=== PATIENT | female | born 1985 | race Hispanic/Latino ===

== ENCOUNTER → 2019-04-06 | Outpatient (CLI) | payer BC ==
--- NOTE | 2019-04-06 08:36 | Diagnostic Imaging Report ---
EXAMINATION: Transabdominal pelvic ultrasound. CLINICAL INDICATION: Excessive menstrual bleeding COMPARISON: None available DISCUSSION: Transverse and sagittal transvaginal images were obtained of the pelvis with supplemental transabdominal images. The uterus is neutral in position and normal in size measuring 12.5 x 4.9 x 6.1 cm. The endometrial stripe is homogeneous, normal in thickness and measures 0.6 centimeters. The ovaries are normal in size and echogenicity. The right ovary measures 3.4 x 2.4 x 2.7 centimeters and contains several small follicles. The left ovary measures 2.6 x 2.2 x 2.8 centimeters and contains several small follicles. No free fluid or pelvic masses are seen. IMPRESSION: Unremarkable transabdominal pelvic ultrasound. Signed by: Dr. Tez Schulte M.D. on 04/06/2019 8:32 AM
== END ==
LOC: US 07:35
PROVIDERS: ATTEND Internal Medicine
DX: N92.4 Excessive bleeding in the premenopausal period (principal)
CPT/HCPCS: 76856

== ENCOUNTER 2021-12-13 10:48 | Emergency (ER) | payer BC, OTHER ==
[~2021-12-13] VITALS: Ht 162.6 cm; Wt 90.7 kg
[2021-12-13] MEDS ORDERED: KETOROLAC TROMETHAMINE 60 MG/2 ML VIAL IM NR (11:30)
[2021-12-13] MEDS ORDERED: BACITRACIN ZINC 0.9GM TP ONE (12:45)
[2021-12-13 12:59] VITALS: BP 128/82
== END 2021-12-13 12:50 | disposition home or self-care (01) ==
LOC: ER 11:01
DX: M79.641 Pain in right hand (principal); L03.113 Cellulitis of right upper limb; R50.9 Fever, unspecified; Y04.0XXA Assault by unarmed brawl or fight, initial encounter; Y92.89 Other specified places as the place of occurrence of the external cause; F17.210 Nicotine dependence, cigarettes, uncomplicated
CPT/HCPCS: 70450; 72125; 73130; 99283; J1885